=== PATIENT | male | born 1990 | race Caucasian/White ===

== ENCOUNTER 2024-04-23 23:10 | Emergency (ER) | payer SELFPAY ==
[~2024-04-23] VITALS: Ht 167.6 cm; Wt 77.0 kg
[2024-04-23 23:45] VITALS: O2SAT 97
[2024-04-24] MEDS: KETOROLAC 15MG/ML VIAL IM ONE (01:00)
[2024-04-24] MEDS ORDERED: LIDO700A15 TP (02:38)
[2024-04-24] MEDS ORDERED: NAPR-1176 MT (02:38)
[2024-04-24 02:45] VITALS: BP 127/68; PULSE 75; RESP 17; TEMP 36.94740; O2SAT 98
== END 2024-04-24 02:45 | disposition home or self-care (01) ==
LOC: ER 04-24 00:20
DX: M25.532 Pain in left wrist (principal); M25.552 Pain in left hip; M25.512 Pain in left shoulder; V49.49XA Driver injured in collision with other motor vehicles in traffic accident, initial encounter; Y93.89 Activity, other specified; Y92.89 Other specified places as the place of occurrence of the external cause; Y99.8 Other external cause status
CPT/HCPCS: 99284; 73502; 73552; 73030; 73110; 96372; J1885